=== PATIENT | female | born 1970 | race Caucasian/White ===

== ENCOUNTER → 2017-08-05 09:28 | Outpatient (CLI) | payer OTHER, SELFPAY ==
--- NOTE | 2017-08-05 09:36 | MRI_ITS ---
STUDY: MRI BILATERAL HIPS T PELVIS REASON FOR EXAM: Pain in hip and pelvic area for more than 5 years. Attention left piriformis and sciatic notch region. TECHNIQUE: Standardized fat and water weighted pulse sequences were obtained in all 3 orthogonal planes. COMPARISON: None. FINDINGS: RIGHT HIP Normal hip joint without articular joint space narrowing. Normal right acetabulum. Normal right labrum. Normal right femoral head. Normal right femoral neck and intratrochanteric region. Normal right gluteus minimus, medius and iliopsoas tendons and distal insertions. Normal right superior and inferior pubic rami. Normal right pubic symphysis. Normal right ischial tuberosity. Normal origin of the right hamstring tendons. Normal visualized right iliac wing, sacroiliac joint, and sacral ala. There is a fat-containing umbilical hernia (T1 axial images 7-17). There is a left adnexal cyst (inversion recovery coronal image 9) measuring 2.3 cm in length. LEFT HIP Normal left hip joint without articular joint space narrowing. Normal left acetabulum. Normal left labrum. Normal left femoral head. Normal left femoral neck and intratrochanteric region. Normal left gluteus minimus, medius and iliopsoas tendons and distal insertions. Normal left superior and inferior pubic rami. Normal left pubic symphysis. Normal left ischial tuberosity. Normal origin of the left hamstring tendons. Normal visualized left iliac wing, sacroiliac joint, and sacral ala. There is no demonstrated hypertrophy of the piriformis muscles (T1 axial images 14-18) and there is no edema in the piriformis muscles (inversion recovery coronal images 7-10). There is no space-occupying lesion in the sciatic notches (T1 axial images 18-22). MRI/Pelvis (Routine) IMPRESSION: No demonstrated hypertrophy or edema of the left piriformis muscle. No demonstrated space-occupying lesion in the left sciatic notch. Electronically Signed: Addison Huynh MD at 13:53 EDT Tel , Service support ,
== END ==
PROVIDERS: Visit Provider Orthopaedic Surgery
DX: M79.1 Myalgia (principal)
CPT/HCPCS: 72195

== ENCOUNTER → 2017-08-11 10:01 | Outpatient (CLI) | payer OTHER, SELFPAY ==
--- NOTE | 2017-08-11 10:12 | MRI_ITS ---
STUDY: MRI ARTHROGRAM OF THE LEFT HIP REASON FOR EXAM: Female, 46 years old. Sharp throbbing back and hip pain for 5 years. TECHNIQUE: Standardized fat and water weighted pulse sequences were obtained in all 3 orthogonal planes after the intra-articular administration of a solution containing 15 cc of a solution containing 0.8 mL of Magnevist contrast. COMPARISON: None. FINDINGS: Normal hip joint without articular joint space narrowing. Normal acetabulum. There is a nondisplaced tear of the base of the anterior superior acetabular labrum (sagittal series 5 images 13-18). Normal femoral head. Normal femoral neck and intratrochanteric region. Normal gluteus minimus, medius and iliopsoas tendons and distal insertions. There is no trochanteric, iliopsoas or iliopectineal bursitis. Normal superior and inferior pubic rami. Normal pubic symphysis. Normal ischial tuberosity. Normal origin of the hamstring tendons. Normal visualized iliac wing, sacroiliac joint, and sacral ala. Normal visualized soft tissue structures of the pelvis. MRI/Lower Ext/Jt Only/W Contrast IMPRESSION: Nondisplaced tear of the base of the anterior superior acetabular labrum. No other significant abnormality. Electronically Signed: Roderick Durand MD at 16:59 EDT , Service support ,
--- NOTE | 2017-08-11 10:29 | RAD_ITS ---
CLINICAL HISTORY: Female, 46 years old. Chronic left hip pain. PROCEDURE: ARTHROGRAM - LEFT HIP CONSENT: The procedure as well as the benefits and possible complications including bleeding and infection were explained to the patient. Informed consent was obtained. FLUOROSCOPY TIME (if supplied): (1:59) minutes/seconds Injection Information: 15 mL of dilute MRI contrast. Number of images obtained: 1 TECHNIQUE: (All elements of maximal sterile barrier technique followed, including US elements as applicable) The patient was in the supine position. The overlying skin was prepped and draped in the usual sterile fashion. Final concentric application under direct fluoroscopic guidance, a 22-gauge spinal needle was placed into the hip joint. 2 cc of Isovue 300 was injected for confirmation. Following this, 15 cc of dilute MRI contrast was injected. The patient tolerated the procedure well. RAD/Arthrogram Hip w/ MRI IMPRESSION: Successful left arthrogram for MRI imaging. Electronically Signed: Shahram Francis MD at 12:26 EDT Tel [phone], Service support ,
== END ==
PROVIDERS: Visit Provider Orthopaedic Surgery
DX: S73.192A Other sprain of left hip, initial encounter (principal); X58.XXXA Exposure to other specified factors, initial encounter
CPT/HCPCS: 27093; 73722; 77002; A9577; Q9967

== ENCOUNTER → 2017-09-15 14:15 | Outpatient (CLI) | payer OTHER, SELFPAY ==
[2017-09-15 16:06] LABS: Thyroid Stim Hormone (TSH) 2.24 uIU/mL (0.358-3.74)
== END ==
PROVIDERS: Visit Provider Obstetrics & Gynecology
DX: R53.83 Other fatigue (principal); R35.0 Frequency of micturition; R39.15 Urgency of urination
CPT/HCPCS: 36415; 84443; 87077; 87086; 87088

== ENCOUNTER → 2019-03-31 | Outpatient (CLI) | payer SELFPAY | END | disposition home or self-care (01) | LOC: LABSPEC 15:37 | PROVIDERS: Visit Provider Obstetrics & Gynecology | DX: R30.0 Dysuria (principal); R39.15 Urgency of urination; R35.0 Frequency of micturition | CPT/HCPCS: 87077; 87086; 87088; 87186 ==

== ENCOUNTER → 2019-08-26 06:26 | Outpatient (CLI) | payer SELFPAY ==
--- NOTE | 2019-08-26 06:42 | MRI_ITS ---
STUDY: MRI LUMBAR SPINE WITH AND WITHOUT CONTRAST REASON FOR EXAM: Female, 48 years old patient with chronic sharp throbbing low back pain. Past surgical history of three prior back surgeries. TECHNIQUE: Standardized fat and water weighted pulse sequences were obtained in the sagittal and axial planes. 23 ml of IV Dotarem was administered for the contrast portion of the examination. Several images are limited by patient motion. COMPARISON: Prior comparison studies are not available for review at this time. FINDINGS: T12-L1: Normal endplates. Normal disc height, signal and morphology. Normal bilateral facet joints. Normal central canal and bilateral lateral recesses. Normal bilateral intervertebral neural foramina. Normal lumbar lordosis. There is no substantial scoliosis. Normal conus medullaris that terminates at the T12-L1 level. L1-2: Normal endplates. Normal disc height, signal and morphology. Normal bilateral facet joints. Normal central canal and bilateral lateral recesses. Normal bilateral intervertebral neural foramina. L2-3: Normal endplates. Normal disc height, signal and morphology. Normal bilateral facet joints. Normal central canal and bilateral lateral recesses. Normal bilateral intervertebral neural foramina. L3-4: Normal endplates. Normal disc height, signal and morphology. Normal bilateral facet joints. Normal central canal and bilateral lateral recesses. Normal bilateral intervertebral neural foramina. L4-5: Normal endplates. Normal disc height, signal and morphology. Normal bilateral facet joints. Normal central canal and bilateral lateral recesses. Normal bilateral intervertebral neural foramina. Patient appears to have had a left-sided laminotomy of L4. L5-S1: Normal endplates. Normal disc height, signal and morphology. Normal bilateral facet joints. Normal central canal and bilateral lateral recesses. Normal bilateral intervertebral neural foramina. Normal visualized sacral ala. 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 There is no demonstrated abnormal enhancement. MRI/Spine Lumbar W/WO Contrast IMPRESSION: 1. Postoperative changes at L4-5. 2. No MR evidence for central canal stenosis or nerve impingement. Electronically Signed: Sil Kiser, MD at 9:41 EDT , Service support ,
== END ==
DX: M47.9 Spondylosis, unspecified (principal)
CPT/HCPCS: 72158; A9575

== ENCOUNTER → 2024-05-03 | Outpatient (CLI) | payer OTHER, SELFPAY | END | disposition home or self-care (01) | LOC: LAB 12:09 | PROVIDERS: PCP Student in an Organized Health Care Education/Training Program; Referring Provider Urology; Visit Provider Urology | DX: R30.0 Dysuria (principal) | CPT/HCPCS: 87077; 87086; 87088; 87186 ==

== ENCOUNTER → 2024-05-13 | Outpatient (CLI) | payer OTHER, SELFPAY | END | disposition home or self-care (01) | PROVIDERS: PCP Student in an Organized Health Care Education/Training Program; Referring Provider Urology; Visit Provider Urology | DX: R30.0 Dysuria (principal) | CPT/HCPCS: 87086; 87088 ==